=== PATIENT | female | born 1965 | race Caucasian/White ===

== ENCOUNTER → 2016-04-08 | Outpatient (REF) | payer BC ==
[2016-04-08 20:50] LABS: BACTERIA, URINE MOD AMOUNT; HYALINE CAST, URINE NONE SEEN /lpf (0-1); MICROSCOPIC EXAM PERFORMED; SQUAMOUS EPITHELIAL CELL URINE MOD AMOUNT /hpf (SMALL AMT)
== END ==
LOC: M LAB REF 16:50
DX: I10 Essential (primary) hypertension (principal)

== ENCOUNTER → 2016-04-29 | Outpatient (REF) | payer BC | LOC: M LAB REF 12:22 | PROVIDERS: ATTEND Physician Assistant | DX: J02.9 Acute pharyngitis, unspecified (principal) ==

== ENCOUNTER → 2016-09-04 | Outpatient (REF) | payer BC | LOC: M LAB REF 16:26 | PROVIDERS: ATTEND Nurse Practitioner Adult Health | DX: H66.90 Otitis media, unspecified, unspecified ear (principal) ==

== ENCOUNTER → 2017-06-13 | Outpatient (REF) | payer BC | LOC: M LAB REF 16:25 | DX: L72.3 Sebaceous cyst (principal) | CPT/HCPCS: 87186 ==

== ENCOUNTER → 2017-12-25 | Outpatient (REF) | payer BC ==
[2017-12-26 08:36] LABS: CONTROL LINE HPYORI INT CTR LINE PRESENT; H PYLORI QUALITATIVE IgG NEGATIVE (NEGATIVE)
== END ==
LOC: M LAB REF 17:11
DX: R10.13 Epigastric pain (principal)
CPT/HCPCS: 86677

== ENCOUNTER → 2017-12-25 | Outpatient (REF) | payer BC | LOC: M LAB REF 12:16 | DX: L02.91 Cutaneous abscess, unspecified (principal) | CPT/HCPCS: 87081 ==

== ENCOUNTER → 2018-01-28 | Outpatient (REF) | LOC: M SMT 09:15 | DX: Z00.00 Encounter for general adult medical examination without abnormal findings (principal) ==

== ENCOUNTER → 2018-04-28 | Outpatient (REF) | payer BC | LOC: M LAB REF 12:26 | PROVIDERS: ATTEND Nurse Practitioner Adult Health | DX: L81.8 Other specified disorders of pigmentation (principal) ==

== ENCOUNTER → 2019-09-13 | Outpatient (REF) | payer BC ==
[2019-09-13 19:26] LABS: APPEARANCE, URINE CLEAR (CLEAR); BACTERIA, URINE AUTO NEGATIVE (NEGATIVE); BILIRUBIN, URINE AUTO NEGATIVE (NEGATIVE); BLOOD, URINE BLOOD 2+ (NEGATIVE); COLOR, URINE YELLOW (YELLOW); GLUCOSE, URINE (UA) AUTO NEGATIVE (NEGATIVE); KETONE, URINE AUTO NEGATIVE (NEGATIVE); LEUKOCYTE ESTERASE, URINE AUTO NEGATIVE (NEGATIVE); MUCUS, URINE SMALL (NEGATIVE); NITRITE, URINE AUTO NEGATIVE (NEGATIVE); PROTEIN, URINE AUTO NEGATIVE (NEGATIVE); RBC, URINE AUTO 14 /HPF (0-3); SQUAMOUS EPITHELIAL CELL UR AU 1 /HPF (0-6); UROBILINOGEN, URINE AUTO 0.2 mg/dL (0.0-2.0); WBC, URINE AUTO 1 /HPF (0-3)
== END ==
LOC: M LAB REF 16:48
PROVIDERS: ATTEND Internal Medicine
DX: Z01.818 Encounter for other preprocedural examination (principal)

== ENCOUNTER → 2020-02-10 | Outpatient (REF) | payer BC | LOC: M SFHCWAGY 13:54 | PROVIDERS: ATTEND Nurse Practitioner Family | DX: Z12.4 Encounter for screening for malignant neoplasm of cervix (principal) ==

== ENCOUNTER → 2020-05-26 | Outpatient (CLI) | payer BC ==
--- NOTE | 2020-05-26 12:29 | REP ---
INDICATION: 6 MO F/U,CYSTS. COMPARISON: 11/29/2019. TECHNIQUE: Real-time sonographic evaluation of left breast performed. FINDINGS: At the 12 to 1 o'clock position, 3 somewhat complex cystic structures are seen. Two of them demonstrate thin internal septations and appear benign. The other is indeterminate with thickened internal septations and greater degree of soft tissue component. This measures 7 x 5 x 8 mm. The others are similar in size. IMPRESSION: BIRADS/ACR category 4A, low suspicion of malignancy. Three complex cysts are seen at the 12-1 o'clock region of the left breast. A cyst at 12 o'clock demonstrates thickened internal septations with small internal soft tissue component. Recommend ultrasound-guided sampling. The other 2 cysts demonstrate thin septations, both with a relatively benign appearance. RECOMMENDATION: As above. <Electronically signed by Robert Agustin > 05/26/20 [id number]
== END ==
LOC: M WHC 10:30
PROVIDERS: ATTEND Nurse Practitioner Adult Health
DX: N60.02 Solitary cyst of left breast (principal)

== ENCOUNTER → 2020-06-05 | Outpatient (CLI) | payer BC ==
[~2020-06-05] MED LIST: ACET325C5 PO; B-122500 PO; HYDR-3490 PO; HYDR12.55 PO; INCR1INH INH; K-TA10TA2 PO; ROSU20TA5 PO
--- NOTE | 2020-06-05 11:58 | REP ---
INDICATION: ABN FINDING OF LUNG. COMPARISON: Multiple the latest 11/25/2019 also without intravenous contrast TECHNIQUE: Noncontrast enhanced helical technique. FINDINGS: The mediastinum and pulmonary chan are unchanged. No mass or adenopathy has developed. There are no pleural or pericardial effusions. There is no significant change in the appearance of the imaged upper abdomen or imaged osseous structures. There opacity seen in the right upper lobe is unchanged. The 9 mm sized ground-glass nodule seen previously in the posterior segment of the right upper lobe abutting the major fissure has gotten more dense. It may have grown 1 mm in each dimension, however, this could be secondary to better edge detection seen today due to its increased density. There are no other significant lung field changes since the last exam. IMPRESSION: 1. The density seen previously in the posterior segment of the right upper lobe which abuts the major fissure has changed, as described above. This perceived change could in part be secondary to slice selection during imaging. In additional three-month follow-up chest CT is suggested. 2. There are other chronic lung field changes which appears stable. <Electronically signed by Alfonzo Serrano > 06/05/20 1654
== END ==
LOC: M RAD 10:50
PROVIDERS: ATTEND Internal Medicine Pulmonary Disease
DX: R91.8 Other nonspecific abnormal finding of lung field (principal)

== ENCOUNTER → 2020-06-06 | Outpatient (CLI) | payer BC ==
[2020-06-06 14:12] VITALS: BP 138/96
--- NOTE | 2020-06-06 14:31 | REP ---
INDICATION: N60.02 SOLITARY CYST LT BREAST,POST US GUIDED BIOPSY. COMPARISON: 11/25/2019. TECHNIQUE: ML and CC views left breast performed following ultrasound-guided biopsy of a complex cystic structure 12-1 o'clock left breast. FINDINGS: Biopsy clip is seen anteriorly in the left breast at about the 12 to 1 o'clock position, status post ultrasound-guided biopsy at that location. IMPRESSION: Biopsy clip placement following ultrasound-guided biopsy. RECOMMENDATION: Clinical follow-up. <Electronically signed by Robert Agustin > 06/06/20 1676
--- NOTE | 2020-06-06 19:58 | REP ---
INDICATION: SOLITARY CYST LT BREAST,US GUIDED BIOPSY. COMPARISON: None. TECHNIQUE: The procedure was performed under the general supervision of Dr. Agustin. The patient has a history of a 7 x 5 x 8 mm cyst with thickened internal septations with small internal soft tissue component in the 12 o'clock position of the left breast seen on a previous ultrasound dated 05/26/2020. The risks and benefits of the procedure were explained to the patient and informed consent was obtained. The left breast nodule was localized using ultrasound guidance. The skin was prepped and draped in a sterile fashion. 1% Xylocaine was used as a local anesthetic. Using ultrasound guidance a 14 gauge coaxial needle system was inserted and6 core biopsy samples were obtained. A marker clip (HydroMARK shape 3) was placed at the biopsy site The patient tolerated the procedure well and there were no immediate complications. After the appropriate amount of monitored convalescence, the patient was discharged from the department. FINDINGS: None IMPRESSION: Ultrasound-guided left breast biopsy with marker clip placement. (HydroMARK shape 3) <Electronically signed by Sky Mohan > 06/06/20 1639 <Electronically signed by Robert Agustin > 06/06/201953
== END ==
LOC: M WHCPRO 06:52
PROVIDERS: ATTEND Nurse Practitioner Adult Health
DX: N60.12 Diffuse cystic mastopathy of left breast (principal)

== ENCOUNTER → 2020-07-03 | Outpatient (CLI) | payer BC ==
--- NOTE | 2020-07-04 11:27 | REP ---
INDICATION: DIAGNOSING LUNG NODULE R91.1. COMPARISON: Previous CT examination of the chest 06/05/2020 was reviewed. There are no prior PET CTs for comparison. TECHNIQUE: After the intravenous administration of 14.5 mCi of FDG 18 triplane whole-body PET-CT was performed from the skull base to the mid thigh. FINDINGS: The ground-glass nodule seen on the prior chest CT in the posterior segment of the right upper lobe is not hypermetabolic. The maximal SUV value is 2.37. There is a single focus of hypermetabolic activity seen in the retroperitoneum on the left in the region of the distal left ureter. This has a maximal SUV value of 5.63. In the right axilla hypermetabolic activity is present ranging from a maximal SUV value of 3.0 to 4.16. No other areas of abnormal hypermetabolic activity is seen in the neck, chest, abdomen, or pelvis. There is hypermetabolic activity seen in the right trochanteric tendono bursal region as well the left and most consistent with trochanteric tendono bursitis. IMPRESSION: 1. The ground-glass nodule seen in the right lung upper lobe is not hypermetabolic. Follow-up should be considered. 2. In the retroperitoneum on the left there is a single focus of hypermetabolic activity which appears to be of ureteral origin rather than true abnormal hypermetabolic activity. Follow-up is suggested. 3. There is right axillary hypermetabolic activity seen, as described above, etiology uncertain. Inflammatory versus neoplastic. 4. Probable bilateral tendono bursitis as described above. <Electronically signed by Alfonzo Serrano > 07/04/20 [id number]
== END ==
LOC: M PLARAD 13:46
PROVIDERS: ATTEND Internal Medicine Pulmonary Disease
DX: R91.1 Solitary pulmonary nodule (principal)

== ENCOUNTER → 2020-07-13 | Outpatient (REF) | payer BC ==
[2020-07-13 18:17] LABS: BLOOD UREA NITROGEN 11 MG/DL (7-18); CREATININE FOR GFR 0.99 MG/DL (0.55-1.30); GLOMERULAR FILTRATION RATE > 60.0 (>51)
== END ==
LOC: M LAB REF 16:46
PROVIDERS: ATTEND Thoracic Surgery (Cardiothoracic Vascular Surgery)
DX: R91.1 Solitary pulmonary nodule (principal)

== ENCOUNTER → 2020-10-11 | Outpatient (REF) | payer BC | LOC: M LAB REF 16:38 | PROVIDERS: ATTEND Nurse Practitioner Adult Health | DX: S31.100A Unspecified open wound of abdominal wall, right upper quadrant without penetration into peritoneal cavity, initial encounter (principal); W18.30XA Fall on same level, unspecified, initial encounter; Y92.009 Unspecified place in unspecified non-institutional (private) residence as the place of occurrence of the external cause ==

== ENCOUNTER → 2020-10-17 | Outpatient (CLI) | payer BC ==
--- NOTE | 2020-10-17 11:33 | REP ---
INDICATION: UNSP OPN WND UNSP FRNT WALL OF THRX W/O PENET THOR CAV, INIT COMPARISON: 10/15/2010 TECHNIQUE: PA and lateral. FINDINGS: Mediastinum and cardiac silhouette are normal. Lung patton demonstrate chronic appearing interstitial changes and surgical sutures in the right mid lung zone. Lateral view raises the possibility of upper lobe atelectasis. No focal consolidation or effusion. No pneumothorax. Skeletal structures are intact. IMPRESSION: Cannot exclude right upper lobe atelectasis based on lateral radiograph. <Electronically signed by Vance bIarra > 10/17/20 [id number]
== END ==
LOC: M PLAIMG 11:04
PROVIDERS: ATTEND Nurse Practitioner Adult Health
DX: S21.109A Unspecified open wound of unspecified front wall of thorax without penetration into thoracic cavity, initial encounter (principal); W18.30XA Fall on same level, unspecified, initial encounter; Y92.009 Unspecified place in unspecified non-institutional (private) residence as the place of occurrence of the external cause

== ENCOUNTER → 2020-12-15 | Outpatient (CLI) | payer BC ==
--- NOTE | 2020-12-16 19:19 | REPVR ---
PROCEDURE INFORMATION: Exam: MR Head Without Contrast Exam date and time: 12/15/2020 10:52 AM Age: 55 years old Clinical indication: Condition or disease; Aneurysm, cerebral; Additional info: Aneursym TECHNIQUE: Imaging protocol: MR of the head without contrast. Other technique: MRA is recommended to evaluate for vascular structures. COMPARISON: PT PET/CT Skull/mid thigh 07/03/2020 4:41 PM FINDINGS: Brain: Mild scattered nonspecific T2/FLAIR hyperintensities of the periventricular and deep subcortical white matter, most likely secondary to chronic small vessel ischemic change. No intracranial hemorrhage or extra-axial fluid collection. No evidence of mass effect or midline shift. No restricted diffusion to suggest acute infarct. Cerebral ventricles: No ventriculomegaly. Bones/joints: Unremarkable. Paranasal sinuses: Small right maxillary sinus retention cyst. Mastoid air cells: No mastoid effusion. Orbital cavity: Unremarkable. Soft tissues: Unremarkable. IMPRESSION: 1. No acute intracranial pathology. 2. Chronic findings, as above. PROCEDURE INFORMATION: Exam: MRA Head Without Contrast; Arteriography Exam date and time: 12/15/2020 10:52 AM Age: 55 years old Clinical indication: Condition or disease; Aneurysm, cerebral; Additional info: Aneursym TECHNIQUE: Imaging protocol: Magnetic resonance angiography head without contrast. Exam focused on the arteries. Other technique: MRA is recommended to evaluate for vascular structures. COMPARISON: PT PET/CT Skull/mid thigh 07/03/2020 4:41 PM FINDINGS: ANTERIOR CIRCULATION: Right internal carotid artery: Intracranial segment is patent with no significant stenosis. No aneurysm. Right middle cerebral artery: Small 1.1 mm infundibulum versus aneurysm projecting posteriorly from the proximal right M1. Right MCA branches are patent. Right anterior cerebral artery: No occlusion or significant stenosis. No aneurysm. Left internal carotid artery: Intracranial segment is patent with no significant stenosis. No aneurysm. Left middle cerebral artery: Approximately 3.3 x 1.8 mm saccular aneurysm projecting anteriorly from the left M1-M2 junction. Left MCA branches are patent. Left anterior cerebral artery: No occlusion or significant stenosis. No aneurysm. POSTERIOR CIRCULATION: Right vertebral artery: No occlusion or significant stenosis. No aneurysm. Left vertebral artery: No occlusion or significant stenosis. No aneurysm. Basilar artery: No occlusion or significant stenosis. No aneurysm. Right posterior cerebral artery: No occlusion or significant stenosis. No aneurysm. Left posterior cerebral artery: No occlusion or significant stenosis. No aneurysm. IMPRESSION: 1. Approximately 3.3 x 1.8 mm saccular aneurysm projecting anteriorly from the left M1-M2 junction. 2. Small 1.1 mm infundibulum versus aneurysm projecting posteriorly from the proximal right M1. Electronically signed by: Gurwinder Gonzalez On 12/16/2020 19:18:19 PM
== END ==
LOC: M PLAIMG 09:35
PROVIDERS: ATTEND Nurse Practitioner Adult Health
DX: I67.1 Cerebral aneurysm, nonruptured (principal)

== ENCOUNTER → 2021-01-31 | Outpatient (CLI) | payer BC ==
--- NOTE | 2021-01-31 11:17 | REP ---
INDICATION: CHEST PAIN COMPARISON: 10/17/2020 TECHNIQUE: PA and lateral. FINDINGS: The mediastinum and cardiac silhouette are normal. The lung patton are clear and without acute consolidation, effusion, or pneumothorax. The skeletal structures are intact and normal. IMPRESSION: No acute cardiopulmonary process. <Electronically signed by Vance Ibarra > 01/31/21 1114
== END ==
LOC: M WUC 10:27
PROVIDERS: ATTEND Nurse Practitioner Adult Health
DX: R07.9 Chest pain, unspecified (principal)

== ENCOUNTER → 2021-02-28 | Outpatient (CLI) | payer BC ==
[~2021-02-28] MED LIST changes: +ISOVUE-370 76% 100ML VIAL As Ordered ONE
--- NOTE | 2021-03-01 10:35 | REP ---
INDICATION: MALIGNANT NEOPLASM OF UPPER LOBE, RIGHT BRONCHUS COMPARISON: 06/05/2020 TECHNIQUE: Axial contrast enhanced images from the thoracic inlet to the upper abdomen with coronal and sagittal reformations using 75 ml Isovue 370 intravenous contrast material. This CT examination was performed using the following dose reduction techniques: Automated exposure control, adjustment of mA and/or kv according to the patient's size, and use of iterative reconstruction technique. FINDINGS: The previously identified rounded non solid area of density along the posterior aspect of the right upper lobe abutting the major fissure has essentially resolved. Small ill-defined areas of somewhat similar opacity are identified in the right apical lung zone and appear relatively stable. There is an new area of ill-defined opacity in the posterior right upper lobe which has a somewhat linear distribution with the largest irregular area measuring roughly 1.8 cm and subtle spiculated margins are noted (series 201, images 29-40). No further acute consolidation, new suspicious nodule or mass lesion is appreciated. No effusion. No pneumothorax. Tracheobronchial tree is patent. Nonspecific appearing mediastinal lymph nodes are essentially unchanged. Further evaluation of the mediastinum demonstrates normal thoracic aorta, pulmonary vasculature, and heart/pericardium. Surrounding musculoskeletal structures are intact and without acute osseous abnormality. Limited upper abdomen demonstrates normal bilateral adrenal glands. IMPRESSION: 1. Previously identified rounded non solid density in the posterior right upper lobe has resolved. 2. New irregular somewhat linear area of opacity within the posteromedial right upper lobe is now identified and while these findings may represent a somewhat varied transient inflammatory or chronic process, malignancy less likely cannot be excluded. Correlation with pulmonary history is required and 6 month follow-up may be warranted. <Electronically signed by Vance Ibarra > 03/01/21 [id number]
== END ==
LOC: M RAD 16:37
PROVIDERS: ATTEND Surgery
DX: C34.11 Malignant neoplasm of upper lobe, right bronchus or lung (principal)

== ENCOUNTER → 2021-05-04 | Outpatient (REF) | payer BC ==
[~2021-05-04] MED LIST changes: -ISOVUE-370 76% 100ML VIAL As Ordered ONE
== END ==
LOC: M SFHCWAGY 12:58
PROVIDERS: ATTEND Obstetrics & Gynecology
DX: Z12.4 Encounter for screening for malignant neoplasm of cervix (principal)
CPT/HCPCS: 87624; G0123

== ENCOUNTER → 2021-08-29 | Outpatient (CLI) | payer BC ==
[~2021-08-29] MED LIST changes: +ISOVUE-370 76% 100ML VIAL As Ordered ONE
== END ==
LOC: M RAD 13:36
PROVIDERS: ATTEND Surgery
DX: C34.11 Malignant neoplasm of upper lobe, right bronchus or lung (principal)

== ENCOUNTER → 2021-10-15 | Outpatient (REF) | payer BC ==
[~2021-10-15] MED LIST changes: -ISOVUE-370 76% 100ML VIAL As Ordered ONE
== END ==
LOC: M LAB REF 16:06
PROVIDERS: ATTEND Physician Assistant Medical
DX: H60.312 Diffuse otitis externa, left ear (principal)

== ENCOUNTER → 2021-11-26 | Outpatient (CLI) | payer BC | LOC: M RAD 12:24 | PROVIDERS: ATTEND Nurse Practitioner Adult Health | DX: M50.322 Other cervical disc degeneration at C5-C6 level (principal) ==

== ENCOUNTER → 2021-12-11 | Outpatient (CLI) | payer BC | LOC: M PLAIMG 09:31 | PROVIDERS: ATTEND Nurse Practitioner Adult Health | DX: I67.1 Cerebral aneurysm, nonruptured (principal) ==

== ENCOUNTER → 2022-02-27 | Outpatient (CLI) | payer BC ==
[~2022-02-27] MED LIST changes: +ISOVUE-370 76% 100ML VIAL As Ordered ONE
== END ==
LOC: M RAD 13:38
PROVIDERS: ATTEND Surgery
DX: C34.11 Malignant neoplasm of upper lobe, right bronchus or lung (principal)

== ENCOUNTER → 2022-05-27 | Outpatient (CLI) | payer BC ==
[~2022-05-27] MED LIST changes: -ISOVUE-370 76% 100ML VIAL As Ordered ONE
== END ==
LOC: M WHC 10:23
PROVIDERS: ATTEND Obstetrics & Gynecology
DX: Z12.31 Encounter for screening mammogram for malignant neoplasm of breast (principal)

== ENCOUNTER → 2022-09-04 | Outpatient (CLI) | payer BC ==
[~2022-09-04] MED LIST changes: -K-TA10TA2 PO; +POTA-165 PO; -ROSU20TA5 PO; +ROSU20TA61 PO
== END ==
LOC: M RAD 12:49
PROVIDERS: ATTEND Nurse Practitioner Family
DX: C34.11 Malignant neoplasm of upper lobe, right bronchus or lung (principal)

== ENCOUNTER → 2022-09-11 | Outpatient (REF) | payer BC | LOC: M LAB REF 16:39 | PROVIDERS: ATTEND Nurse Practitioner Adult Health | DX: R10.9 Unspecified abdominal pain (principal) ==

== ENCOUNTER → 2023-01-03 | Outpatient (CLI) | payer BC ==
[~2023-01-03] MED LIST changes: +B-12100010 PO; +NICO21DI6 TD
== END ==
LOC: M PLAIMG 09:50
PROVIDERS: ATTEND Nurse Practitioner Adult Health
DX: I67.1 Cerebral aneurysm, nonruptured (principal)

== ENCOUNTER → 2023-01-10 | Day surgery (SDC) | payer BC ==
[~2023-01-10] VITALS: Ht 162.6 cm; Wt 85.3 kg
[~2023-01-10] MED LIST changes: +LISI10TA22 PO; +NS 1,000 ML IV ONE
== END | disposition home or self-care (01) ==
LOC: M OPP 10:57
PROVIDERS: ATTEND Surgery
DX: Z12.11 Encounter for screening for malignant neoplasm of colon (principal); Z53.8 Procedure and treatment not carried out for other reasons

== ENCOUNTER 2023-01-11 21:26 | Emergency (ER) | payer BC ==
[~2023-01-11] VITALS: Ht 162.6 cm; Wt 86.6 kg
[~2023-01-11 21:26] MED LIST changes: -LISI10TA22 PO; -NS 1,000 ML IV ONE
[2023-01-11 22:14] VITALS: TEMP 98.4
[2023-01-11 22:46] LABS: BASO # 0.1 10^3/uL (0.0-0.2); BASO % 0.6 % (0.0-1.0); EOS # 0.2 10^3/uL (0.0-0.5); EOS % 1.7 % (0.0-3.0); HEMATOCRIT 46.9 % (36.0-47.0); HEMOGLOBIN 15.7 g/dl (12.0-15.5); LYMPH # 2.3 10^3/uL (1.5-5.0); MEAN CORPUSCULAR HEMOGLOBIN 31.3 pg (27.0-33.0); MEAN CORPUSCULAR HGB CONC 33.5 g/dl (32.0-36.5); MEAN CORPUSCULAR VOLUME 93.6 fl (80.0-96.0); MONO # 0.6 10^3/uL (0.0-0.8); NEUTROPHILS # 7.1 10^3/uL (1.5-8.5); NEUTROPHILS % 69.5 % (36.0-66.0); PLATELET COUNT, AUTOMATED 291 10^3/uL (150-450); RED BLOOD COUNT 5.01 10^6/uL (4.00-5.40); WHITE BLOOD COUNT 10.3 10^3/uL (4.0-10.0)
[2023-01-11 22:52] LABS: ERYTHROCYTE SEDIMENTATION RATE 25 mm/hr (0-30)
[2023-01-11 23:11] LABS: BLOOD UREA NITROGEN 10 MG/DL (9-23); CALCIUM LEVEL 9.2 MG/DL (8.5-10.1); CARBON DIOXIDE LEVEL 28 MMOL/L (20-31); CHLORIDE LEVEL 104 MMOL/L (98-107); CK-MB VALUE MASS < 1.0 NG/ML (<3.6); CREATININE FOR GFR 1.04 MG/DL (0.55-1.30); GLOMERULAR FILTRATION RATE 58.4 (>51); GLUCOSE, FASTING 116 MG/DL (60-100); POTASSIUM SERUM 3.8 MMOL/L (3.5-5.1); SODIUM LEVEL 140 MMOL/L (136-145)
[2023-01-11 23:14] LABS: THYROID STIMULATING HORMONE 1.769 uIU/ML (0.55-4.78)
[2023-01-11 23:16] LABS: CPK CREATINE PHOSPHOKINASE 92 U/L (34-145); MB/CK RELATIVE INDEX 1.08 (< OR =4)
[2023-01-11 23:58] LABS: APPEARANCE, URINE CLEAR (CLEAR); BACTERIA, URINE AUTO NEGATIVE (NEGATIVE); BILIRUBIN, URINE AUTO NEGATIVE (NEGATIVE); BLOOD, URINE BLOOD 2+ (NEGATIVE); COLOR, URINE YELLOW (YELLOW); GLUCOSE, URINE (UA) AUTO NEGATIVE (NEGATIVE); KETONE, URINE AUTO NEGATIVE (NEGATIVE); LEUKOCYTE ESTERASE, URINE AUTO NEGATIVE (NEGATIVE); MUCUS, URINE SMALL (NEGATIVE); NITRITE, URINE AUTO NEGATIVE (NEGATIVE); PROTEIN, URINE AUTO NEGATIVE (NEGATIVE); RBC, URINE AUTO 5 /HPF (0-3); SPECIFIC GRAVITY URINE AUTO 1.008 (1.002-1.035); SQUAMOUS EPITHELIAL CELL UR AU 1 /HPF (0-6); UROBILINOGEN, URINE AUTO 0.2 mg/dL (0.0-2.0); WBC, URINE AUTO 2 /HPF (0-3)
[2023-01-12] MEDS ORDERED: LISI10TA22 PO (00:03)
[2023-01-12 00:05] VITALS: BP 163/74
[2023-01-12 00:05] LABS: CK-MB VALUE MASS < 1.0 NG/ML (<3.6)
[2023-01-12 00:07] LABS: CPK CREATINE PHOSPHOKINASE 87 U/L (34-145); MB/CK RELATIVE INDEX 1.14 (< OR =4)
[2023-01-12 00:30] VITALS: BP 159/93
[2023-01-12 00:45] VITALS: O2SAT 93
== END 2023-01-12 00:54 | disposition home or self-care (01) ==
LOC: M ED 21:26
DX: I10 Essential (primary) hypertension (principal); E78.5 Hyperlipidemia, unspecified; G47.33 Obstructive sleep apnea (adult) (pediatric); Z79.899 Other long term (current) drug therapy; Z88.7 Allergy status to serum and vaccine; Z88.5 Allergy status to narcotic agent

== ENCOUNTER → 2023-02-28 | Outpatient (CLI) | payer BC ==
[~2023-02-28] MED LIST changes: +ISOVUE-370 76% 100ML VIAL As Ordered ONE; +LISI10TA22 PO
== END ==
LOC: M RAD 09:56
PROVIDERS: ATTEND Physician Assistant
DX: C34.11 Malignant neoplasm of upper lobe, right bronchus or lung (principal)

== ENCOUNTER → 2023-04-07 | Outpatient (REF) | payer BC ==
[~2023-04-07] MED LIST changes: -ISOVUE-370 76% 100ML VIAL As Ordered ONE
[2023-04-07 19:08] LABS: CALCIUM LEVEL 8.8 MG/DL (8.5-10.1); CREATININE FOR GFR 1.08 MG/DL (0.55-1.30); GLOMERULAR FILTRATION RATE 55.9 (>51); POTASSIUM SERUM 3.7 MMOL/L (3.5-5.1)
== END ==
LOC: M LABDRWAD 17:00
PROVIDERS: ATTEND Nurse Practitioner Adult Health
DX: E78.00 Pure hypercholesterolemia, unspecified (principal)

== ENCOUNTER → 2023-05-30 | Outpatient (CLI) | payer BC | LOC: M WHC 13:07 | PROVIDERS: ATTEND Obstetrics & Gynecology | DX: Z12.31 Encounter for screening mammogram for malignant neoplasm of breast (principal) ==

== ENCOUNTER → 2023-05-30 | Outpatient (REF) | payer BC ==
[2023-05-30 18:03] LABS: APPEARANCE, URINE CLEAR (CLEAR); BACTERIA, URINE AUTO 1+ (NEGATIVE); BILIRUBIN, URINE AUTO NEGATIVE (NEGATIVE); BLOOD, URINE BLOOD 2+ (NEGATIVE); COLOR, URINE STRAW (YELLOW); GLUCOSE, URINE (UA) AUTO NEGATIVE (NEGATIVE); KETONE, URINE AUTO NEGATIVE (NEGATIVE); LEUKOCYTE ESTERASE, URINE AUTO NEGATIVE (NEGATIVE); NITRITE, URINE AUTO NEGATIVE (NEGATIVE); PROTEIN, URINE AUTO NEGATIVE (NEGATIVE); RBC, URINE AUTO 1 /HPF (0-3); SPECIFIC GRAVITY URINE AUTO 1.006 (1.002-1.035); SQUAMOUS EPITHELIAL CELL UR AU 2 /HPF (0-6); UROBILINOGEN, URINE AUTO 0.2 mg/dL (0.0-2.0); WBC, URINE AUTO 0 /HPF (0-3)
== END ==
LOC: M PLALAB 14:38
PROVIDERS: ATTEND Obstetrics & Gynecology
DX: Z01.419 Encounter for gynecological examination (general) (routine) without abnormal findings (principal); R31.9 Hematuria, unspecified
CPT/HCPCS: 81001; 87086; 87624; G0123

== ENCOUNTER → 2023-08-25 | Outpatient (CLI) | payer BC ==
[~2023-08-25] MED LIST changes: +ISOVUE-370 76% 100ML VIAL ONE
== END ==
LOC: M PLAIMG 08:41
PROVIDERS: ATTEND Physician Assistant
DX: C34.11 Malignant neoplasm of upper lobe, right bronchus or lung (principal)

== ENCOUNTER → 2023-09-22 | Outpatient (CLI) | payer BC ==
[~2023-09-22] MED LIST changes: -ISOVUE-370 76% 100ML VIAL ONE
== END ==
LOC: M PLARAD 07:32
PROVIDERS: ATTEND Physician Assistant
DX: R91.1 Solitary pulmonary nodule (principal)
CPT/HCPCS: 78815; A9552

== ENCOUNTER → 2024-01-08 | Outpatient (CLI) | payer BC ==
[~2024-01-08] MED LIST changes: -ROSU20TA61 PO; +ROSU20TA86 PO
== END ==
LOC: M PLAIMG 10:42
PROVIDERS: ATTEND Nurse Practitioner Adult Health
DX: R31.9 Hematuria, unspecified (principal)

== ENCOUNTER → 2024-02-04 | Outpatient (CLI) | payer BC | LOC: M PLAIMG 11:25 | PROVIDERS: ATTEND Physician Assistant | DX: C34.12 Malignant neoplasm of upper lobe, left bronchus or lung (principal) ==

== ENCOUNTER → 2024-02-12 | Outpatient (CLI) | payer BC | LOC: M WHC 11:26 | PROVIDERS: ATTEND Nurse Practitioner Adult Health | DX: N28.1 Cyst of kidney, acquired (principal) ==

== ENCOUNTER → 2024-03-26 | Outpatient (CLI) | payer BC | LOC: M PLAIMG 06:34 | PROVIDERS: ATTEND Nurse Practitioner Adult Health | DX: I67.1 Cerebral aneurysm, nonruptured (principal) ==

== ENCOUNTER → 2024-03-30 | Outpatient (CLI) | payer BC ==
[~2024-03-30] MED LIST changes: +ISOVUE-370 76% 100ML VIAL ONE
== END ==
LOC: M PLAIMG 09:29
PROVIDERS: ATTEND Urology
DX: R31.0 Gross hematuria (principal)

== ENCOUNTER → 2024-06-01 | Outpatient (CLI) | payer BC ==
[~2024-06-01] MED LIST changes: +ISOVUE-370 76% 100ML VIAL As Ordered ONE; -ISOVUE-370 76% 100ML VIAL ONE
== END ==
LOC: M RAD 12:58
PROVIDERS: ATTEND Physician Assistant
DX: C34.90 Malignant neoplasm of unspecified part of unspecified bronchus or lung (principal)

== ENCOUNTER → 2024-11-09 | Outpatient (CLI) | payer BC ==
[~2024-11-09] MED LIST changes: -ISOVUE-370 76% 100ML VIAL As Ordered ONE
== END ==
LOC: M PLAIMG 10:10
PROVIDERS: ATTEND Nurse Practitioner Adult Health
DX: M25.561 Pain in right knee (principal)

== ENCOUNTER → 2024-11-17 | Outpatient (CLI) | payer BC ==
[~2024-11-17] MED LIST changes: +ISOVUE-370 76% 100 ML VIAL As Ordered ONE
== END ==
LOC: M RAD 12:41
PROVIDERS: ATTEND Physician Assistant
DX: C34.12 Malignant neoplasm of upper lobe, left bronchus or lung (principal); C34.11 Malignant neoplasm of upper lobe, right bronchus or lung
CPT/HCPCS: 71260; Q9967

== ENCOUNTER → 2025-02-07 | Outpatient (CLI) | payer BC | LOC: M RAD 11:11 | PROVIDERS: ATTEND Physician Assistant | DX: R91.1 Solitary pulmonary nodule (principal); C34.11 Malignant neoplasm of upper lobe, right bronchus or lung; C34.12 Malignant neoplasm of upper lobe, left bronchus or lung | CPT/HCPCS: 71260; Q9967 ==